=== PATIENT | female | born 1985 | race African-American/Black ===

== ENCOUNTER 2016-12-01 17:27 | Emergency (ER) | payer BC ==
[2016-12-01 20:04] VITALS: BP 134/89
[2016-12-01] MEDS ORDERED: HYDROcodone/ACETAMIN 5-325 MG* 1 TAB PO ONE (20:21)
[2016-12-01] MEDS ORDERED: Cyclobenzaprine TAB* 10 MG PO ONE (20:21)
--- NOTE | 2016-12-01 20:21 | UC ---
Truncal Trauma HPI - HPI Summary HPI Summary: lifted a heavy laptop yesterday, felt a sudden "pop" and terrible pain in left lower ribcage. Had similar episode twice before, was told she "sprained or broke a rib". Worsening pain today. Hurts with any torso movement, hurts to cough or take a deep breath. No fever. NO recent illness. No bruising or visible swelling - History Of Current Complaint Chief Complaint: UCBackPain Stated Complaint: RIBS & BACK PAIN Time Seen by Provider: 12/01/16 20:16 Hx Obtained From: Patient Hx Last Menstrual Period: 11/06/16 Onset/Duration: Sudden Onset, Lasting Days - 2 Onset Of Pain: Immediate Severity Initially: Moderate Severity Currently: Moderate Mechanism Of Injury: Twisted - while lifting Aggravating Factor(s): Movement, Deep Breathing, Cough Alleviating factor(s): Nothing Associated Signs And Symptoms: Positive: Chest Pain - pleuritic Related History: Similar Episode That Was Diagnosed As: - rib fracture/chest wall strain - Allergies/Home Medications Allergies/Adverse Reactions: Allergies Allergy/AdvReac Type Severity Reaction Status Date / Time No Known Allergies Allergy Verified 12/01/16 19:54 Home Medications: Home Medications Clindamycin CAP* [Cleocin 150 MG CAP*] 300 mg PO BID 12/01/16 [History Confirmed 12/01/16] PMH/Surg Hx/FS Hx/Imm Hx Previously Healthy: Yes - Surgical History Surgical History: Yes Surgery Procedure, Year, and Place: TORN ACL, BILATEREAL REPAIR. 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 Lives: With Family Alcohol Use: Occasionally Substance Use Type: None Smoking Status (MU): Light Every Day Tobacco Smoker Type: Cigarettes Amount Used/How Often: 7 cigarettes daily Have You Smoked in the Last Year: Yes When Did the Patient Quit Smoking/Using Tobacco: 07/02/14 Household Exposure Type: Cigarettes Review of Systems Constitutional: Negative Skin: Negative Eyes: Negative ENT: Negative Respiratory: Other - pleuritic pain Cardiovascular: Chest Pain - chest wall Gastrointestinal: Negative Genitourinary: Negative Motor: Negative Neurovascular: Negative Musculoskeletal: Negative Neurological: Negative Psychological: Negative All Other Systems Reviewed And Are Negative: Yes Physical Exam Triage Information Reviewed: Yes Appearance: Well-Appearing, Well-Nourished, Pain Distress - looks uncomfortable , clutching left ribcage Vital Signs: Initial Vital Signs Temp 98.4 F 12/01/16 19:57 Pulse 81 12/01/16 19:57 Resp 16 12/01/16 19:57 BP 134/89 12/01/16 19:57 Pulse Ox 100 12/01/16 19:57 Vital Signs Reviewed: Yes Eye Exam: Normal Respiratory: Positive: Lungs clear, Normal breath sounds, No respiratory distress, No accessory muscle use, Other: - marked tenderness left lateral lower ribcage. No bruising or swelling. No crepitus Cardiovascular Exam: Normal Musculoskeletal Exam: Normal Neurological Exam: Normal Psychological Exam: Normal Skin Exam: Normal Diagnostics - Laboratory Diagnostic Studies Completed/Ordered: rib series neg Truncal Trauma Course/Dx - Differential Dx/Diagnosis Differential Diagnosis/HQI/PQRI: Chest Wall Contusion, Pneumothorax, Rib Fracture Provider Diagnoses: chest wall injury Discharge - Discharge Plan Condition: Stable Disposition: HOME Prescriptions: Cyclobenzaprine TAB* [Flexeril TAB*] 10 mg PO TID PRN #30 tab PRN Reason: Pain Hydrocodone-Acetaminophen [Hydrocodone/Acetaminophen 5-325 mg] 1 - 2 tab PO Q6HR PRN #30 tab MDD 6 tab PRN Reason: Pain Patient Education Materials: Chest Wall Pain (ED) Forms: *Work Release Referrals: Anival Urena MD [Primary Care Provider] -
--- NOTE | 2016-12-01 21:40 | RAD ---
HISTORY: Left rib pain, injury COMPARISONS: September 19, 2015 VIEWS: 4, Frontal view of the chest with frontal and oblique views of the left hemithorax FINDINGS: There is no displaced rib fracture or pneumothorax. The visualized lungs are clear. IMPRESSION: NO DISPLACED RIB FRACTURE OR PNEUMOTHORAX
== END 2016-12-01 22:04 | disposition home or self-care (01) ==
LOC: UCCORT 17:27
DX: R07.89 Other chest pain (principal); F17.210 Nicotine dependence, cigarettes, uncomplicated
CPT/HCPCS: 99212; A9270-GY; G0463

== ENCOUNTER 2018-04-10 13:54 | Emergency (ER) | payer BC ==
[2018-04-10 14:44] VITALS: BP 123/71
--- NOTE | 2018-04-10 14:49 | UC ---
Back Pain HPI - HPI Summary HPI Summary: 32 yo female had been lifting wts at gym yesterday Today on awakening she stretched and had the sudden onset of upper back pain/ tightness - History of Current Complaint Chief Complaint: UCBackPain Stated Complaint: UPPER BACK PAIN Time Seen by Provider: 04/10/18 14:47 Hx Obtained From: Patient Hx Last Menstrual Period: 03/25/18 Onset/Duration: Sudden Onset Timing: Constant Severity Initially: Severe Severity Currently: Severe Pain Intensity: 8 Pain Scale Used: 0-10 Numeric Back Pain: Is Discrete @ - rhomboids Character: Aching, Throbbing, Spasmodic, Stiffness Aggravating Factor(s): Movement, Lifting, Bending Alleviating Factor(s): Nothing Associated Signs And Symptoms: Positive: Negative Related History: Similar Episode Dx As - back strain - Allergies/Home Medications Allergies/Adverse Reactions: Allergies Allergy/AdvReac Type Severity Reaction Status Date / Time No Known Allergies Allergy Verified 04/10/18 14:29 Home Medications: Home Medications [place] Extract 1 gm MC 04/10/18 [History] Cholecalciferol (Vitamin D3) [Vitamin D3] 2,000 unit PO 04/10/18 [History] Garlic 04/10/18 [History] Naproxen Sodium [Aleve] 220 mg PO PRN 04/10/18 [History] [place] Extract [[place] Extract] 250 mg PO 04/10/18 [History] Turmeric Root Extract [Ra Turmeric] 500 mg PO 04/10/18 [History] PMH/Surg Hx/FS Hx/Imm Hx Previously Healthy: Yes - Surgical History Surgical History: Yes Surgery Procedure, Year, and Place: TORN ACL, BILATEREAL REPAIR. RIGHT HAND SURGERY - Family History Known Family History: Positive: Cardiac Disease, Hypertension, Diabetes Negative: Respiratory Disease - Social History Alcohol Use: Rare Substance Use Type: None Smoking Status (MU): Former Smoker Type: Cigarettes Amount Used/How Often: 7 cigarettes daily Have You Smoked in the Last Year: Yes When Did the Patient Quit Smoking/Using Tobacco: 11/05/17 Household Exposure Type: Cigarettes Review of Systems Constitutional: Negative Skin: Negative Eyes: Negative ENT: Negative Respiratory: Negative Cardiovascular: Negative Gastrointestinal: Negative Genitourinary: Negative Motor: Negative Neurovascular: Negative Musculoskeletal: Myalgia Neurological: Negative Psychological: Negative Is Patient Immunocompromised?: No All Other Systems Reviewed And Are Negative: Yes Physical Exam Triage Information Reviewed: Yes Appearance: Well-Appearing, No Pain Distress, Well-Nourished Vital Signs: Initial Vital Signs Temp 98.1 F 04/10/18 14:34 Pulse 58 04/10/18 14:34 Resp 16 04/10/18 14:34 BP 123/71 04/10/18 14:34 Pulse Ox 100 04/10/18 14:34 Vital Signs Reviewed: Yes Eyes: Positive: Conjunctiva Clear ENT: Positive: Hearing grossly normal. Negative: Nasal congestion, Nasal drainage, Trismus, Muffled voice, Hoarse voice, Sinus tenderness Neck: Positive: Supple, Nontender, No Lymphadenopathy Respiratory: Positive: Lungs clear, Normal breath sounds, No respiratory distress Cardiovascular: Positive: RRR, No Murmur Musculoskeletal: Positive: ROM Limited @ - both shoulders- hurts to lift arms Neurological: Positive: Alert, Muscle Tone Normal Psychological Exam: Normal Skin Exam: Normal Back Pain Course/Dx - Differential Dx/Diagnosis Provider Diagnoses: upper back strain Discharge - Sign-Out/Discharge Documenting (check all that apply): Discharge/Admit/Transfer - Discharge Plan Condition: Stable Disposition: HOME Prescriptions: Cyclobenzaprine TAB* [Flexeril TAB*] 10 mg PO TID PRN #21 tab PRN Reason: Spasms Patient Education Materials: Thoracic Pain (ED) Forms: *Work Release Referrals: Magalie Lacey MD [Primary Care Provider] - 1 Week Additional Instructions: PT consult you may take aleve 2 twice daily with food food pain next dose around 9PM muscle relaxant may cause drowsiness don't take and drive - Billing Disposition and Condition Condition: STABLE Disposition: Home Images Front/Back of Body, Lg ([place]): 1 - bilat thomboid mus tenderness
[2018-04-10] MEDS ORDERED: Ketorolac INJ* 30 MG/ML 1 ML VIAL IM ONE (14:58)
== END 2018-04-10 15:23 | disposition home or self-care (01) ==
LOC: UCCORT 13:54
DX: S29.012A Strain of muscle and tendon of back wall of thorax, initial encounter (principal); X50.0XXA Overexertion from strenuous movement or load, initial encounter; Y93.89 Activity, other specified; Y92.003 Bedroom of unspecified non-institutional (private) residence as the place of occurrence of the external cause; Z87.891 Personal history of nicotine dependence
CPT/HCPCS: 96372; 99211; G0463; J1885

== ENCOUNTER 2019-03-09 17:26 | Emergency (ER) | payer BC ==
--- OUTSIDE RECORDS SUMMARY | 2019-03-09 17:34 | XMS REPORT | Continuity of Care Document ---
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 Independent with all ADL's Tobacco Use Start: Unknown End: Quit Unknown ETOH Use Currently consumes alcohol socially Tobacco Use Start: Unknown End: Patient is a former smoker Unknown Tobacco Use Start: Unknown End: Patient is a former smoker Patient quit Unknown Smoking Status Reviewed: 02/04/19 Patient is a former smoker Patient quit Allergies, Adverse Reactions, Alerts Description No Known Drug Allergies Medications Active Medications SIG Qnty Indications Ordering Date Provider Vitamin D3 Adult 2 tabs daily 60units Surinder Olivares MD 11/20/2018 Gummies 1000Unit Chewtabs Aspirin 81 Low Dose 1 tab by mouth 30units I21.4 Taz Franco MD 2017 every day as 81mg Chewtabs directed Ibuprofen 1 tab by mouth 60tabs M94.0 Magalie Lacey, 08/22/2017 600mg Tablets every 6 hours as M.D. needed Atorvastatin Calcium 1 by mouth every 90tabs Taz Franco MD day 40mg Tablets History Medications No Active Medications Unknown 08/22/2017 - 08/22/2017 Cyclobenzaprine HCL take 1 tablet 30tabs M94.0 Magalie Lacey, 08/22/2017 - 10mg by mouth 3 M.D. Unknown Tablets times a day as needed Clindamycin HCL 1 po q 8hr 28caps Nate Bautista, 12/31/2015 - 300mg M.D. 01/10/2016 Capsules Clindamycin HCL Unknown - 12/31/2015 Acidophilus Unknown - 08/22/2017 Pantoprazole Sodium 1 by mouth Unknown - 40mg every day Unknown Tablets DR Cyclobenzaprine HCL Take One Tablet Unknown - 10mg Three Times A 02/17/2019 Tablets Day as Needed For Spasms Immunizations CPT Code Status Date Vaccine Lot # [id number] Given 08/22/2017 Tdap injection [id number] Given 08/22/2017 Influenza Virus Vaccine Quadrivalent Iiv4 Split [id number] Preser Free Id Vital Signs Date Vital Result Comment 02/17/2019 1:41pm BP Systolic 122 mmHg BP Diastolic 72 mmHg Heart Rate 63 /min Respiratory Rate 18 /min Height 65 inches 5'5" Weight 189.00 lb BMI (Body Mass Index) 31.4 kg/m2 BSA (Body Surface Area) 1.93 m2 [place] body weight in kilograms 57 kg O2 % BldC Oximetry 98 % Ra 11/19/2018 1:39pm BP Systolic Sitting Left Arm 118 mmHg BP Diastolic Sitting Left Arm 52 mmHg Respiratory Rate 16 /min Height 65 inches 5'5" Weight 200.00 lb BMI (Body Mass Index) 33.3 kg/m2 BSA (Body Surface Area) 1.98 m2 [place] body weight in kilograms 57 kg O2 % BldC Oximetry 99 % 09/30/2018 2:38pm BP Systolic 122 mmHg BP Diastolic 80 mmHg Heart Rate 104 /min Respiratory Rate 20 /min Height 65 inches 5'5" Weight 210.00 lb BMI (Body Mass Index) 34.9 kg/m2 BSA (Body Surface Area) 2.02 m2 [place] body weight in kilograms 57 kg O2 % BldC Oximetry 98 % 09/11/2018 9:45am BP Systolic 122 mmHg BP Diastolic 72 mmHg Body Temperature 98.2 F Heart Rate 60 /min Respiratory Rate 20 /min Height 65 inches 5'5" Weight 208.00 lb BMI (Body Mass Index) 34.6 kg/m2 BSA (Body Surface Area) 2.01 m2 [place] body weight in kilograms 57 kg O2 % BldC Oximetry 98 % 11/20/2017 8:46am BP Systolic 116 mmHg BP Diastolic 78 mmHg Heart Rate 70 /min Height 65 inches 5'5" Weight 216.00 lb BMI (Body Mass Index) 35.9 kg/m2 BSA (Body Surface Area) 2.04 m2 [place] body weight in kilograms 57 kg O2 % BldC Oximetry 96 % 08/22/2017 1:52pm BP Systolic Sitting Left Arm 132 mmHg BP Diastolic Sitting Left Arm 86 mmHg Height 65 inches 5'5" Weight 208.12 lb BMI (Body Mass Index) 34.6 kg/m2 BSA (Body Surface Area) 2.01 m2 [place] body weight in kilograms 57 kg 01/10/2016 1:48pm BP Systolic Sitting Left Arm 128 mmHg BP Diastolic Sitting Left Arm 94 mmHg 12/31/2015 9:32am BP Systolic 125 mmHg BP Diastolic 79 mmHg Height 64 inches 5'4" Weight 209.00 lb BMI (Body Mass Index) 35.9 kg/m2 BSA (Body Surface Area) 1.99 m2 Results Test Date Facility Test Result H/L Range Note LDL Cholesterol 11/19/2018 [facility] Cholesterol 139 mg/dL <200 1, 2 Profile [address] [place] [address] [phone] Triglycerides 76 mg/dL <150 3 HDL Cholesterol 49 mg/dL >40 4 LDL-Cholesterol 75 mg/dL < 100 5 Liver Function Tests 11/19/2018 [facility] Total Protein 7.9 g/dL N 6.4-8.[address] [place] [address] [phone] Albumin 3.8 g/dL N 3.4-5.0 Globulin 4.1 g/dL N 1.9-4.3 Alb/Glob 0.9 ratio Bilirubin,Total 0.3 mg/dL N 0.2-1.0 Bilirubin,Direct 0.1 mg/dL N 0.0-0.2 Bilirubin,Indirect 0.2 mg/dL N 0.0-0.9 Sgot/Ast 22 U/L N 15-37 SGPT/Alt 31 U/L N 12-78 Alkaline Phosphatase 96 U/L N 45-117 Laboratory test 11/19/2018 [facility] Thyroid Stim 1.16 uIU/mL N 0.30-4.[address] [place] [address] [phone] Vitamin D,25-Hydroxy 20.1 ng/mL Low 30.0-100.0 6 CK-MB (Mass) < 1.0 ng/ml N 0.5-3.6 CBC W/Automated Diff 09/11/2018 [facility] [address] White Blood 6.3 K/uL N 3.1-10.[address] [place] [address] [phone] Red Blood Count 4.68 M/uL N 3.90-5.40 Hemoglobin 14.0 gm/dL N 11.6-15.8 Hematocrit 42.2 % N 36.0-46.1 Mean Cell Volume 90.2 fl N 80.9-99.0 Mean Corpuscular HGB 29.9 pg N 25.9-32.7 Mean Corpuscular HGB Conc 33.2 g/dL N 30.8-34.3 Platelet Count 268 K/uL N 155-360 Red Cell Distri Width SD 48.7 fl High 3-47 Red Cell Distri Width %CV 15.0 % High 11.7-14.4 Mean Platelet Volume 11.2 fL N 8.9-12.4 Neut% 48.5 % N 40.4-72.8 Lymph % 37.0 % N 20.0-42.0 [place] % 9.7 % N 4.3-13.2 Eo% 4.3 % N 0.0-6.6 Bas% 0.5 % N 0.0-1.1 Neut# 3.05 K/uL N 1.8-7.0 Lymph # 2.33 K/uL N 1.0-4.0 [place] # 0.61 K/uL N 0.3-0.9 Eos # 0.27 K/uL N 0.0-0.5 Baso # 0.03 K/uL N 0.0-0.1 Comprehensive Metabolic 09/11/[address] Glucose 123 mg/dL High 74-106 Panel [address] [place] [address] [phone] BUN 5 mg/dL Low 7-18 Creatinine 0.8 mg/dL N 0.6-1.3 Glom Filtration Rate, Estimate >60 mL/min >60 If >60 mL/min >60 8 BUN/Creat 6.2 ratio Sodium 136 mmol/L N 136-145 Potassium 4.1 mmol/L N 3.5-5.1 Chloride 106 mmol/L N 98-107 Carbon Dioxide 24 mmol/L N 21-32 Anion Gap 6 mEq/L Low 8-16 Calcium 8.4 mg/dL Low 8.5-10.1 Total Protein 7.7 g/dL N 6.4-8.2 Albumin 3.4 g/dL N 3.4-5.0 Globulin 4.3 g/dL N 1.9-4.3 Alb/Glob 0.8 ratio Bilirubin,Total 0.2 mg/dL N 0.2-1.0 Sgot/Ast 24 U/L N 15-37 SGPT/Alt 35 U/L N 12-78 Alkaline Phosphatase 78 U/L N 45-117 Reflex add FT3? Y Reflex add FT4? Y LDL Cholesterol Profile 09/11/2018 [facility] [address] Cholesterol 177 mg/dL <200 9 [address] [place] [address] [phone] Triglycerides 115 mg/dL <150 10 HDL Cholesterol 43 mg/dL >40 11 LDL-Cholesterol 111 mg/dL < 100 12 Reflex add FT3? Y Reflex add FT4? Y Glycohemoglobin A1c 09/11/2018 [facility] [address] Glycohemoglobin 6.1 % N 4.2-6.3 13 [address] [facility] (A1c) [place] [address] [phone] eAG 128 mg/dL TSH Reflex FT4 09/11/2018 [facility] [address] Thyroid Stim 1.90 uIU/mL N 0.30-4.20 And/Or FT3 [address] [facility] [place] [address] [phone] Reflex add FT3? Y Reflex add FT4? Y Laboratory test 12/22/2015 N2N/CCD Import Urine Bilirubin Negative Negative finding Urine Blood Negative Negative Urine Clarity Clear Clear Urine Color Straw Yellow Urine Glucose (Ua) Negative Negative Urine Ketones Negative Negative Urine Leukocyte Esterase Negative Negative Urine Nitrite Negative Negative Urine Protein Negative Negative Urine Urobilinogen 0.2 0.2-1.0 Urine pH 6.0 Low 6.5-7.5 Laboratory test 12/21/2015 N2N/CCD Import Erythrocyte 13 0-20 finding Sedimentation Rate Laboratory test 12/21/2015 [facility] C-Reactive 13.3 mg/L High <3.[address] Protein,[place] [address] [phone] Sedimentation Rate 13 mm/hr 0-20 Laboratory test finding 12/21/2015 N2N/CCD Import Aerobic Blood No Growth Culture Anaerobic Blood Culture No Growth Laboratory test finding 12/21/2015 N2N/CCD Import Aerobic Blood No Growth Culture Anaerobic Blood Culture No Growth Laboratory test 12/20/2015 N2N/CCD Import Alanine Aminotransferase 26 12 -78 finding (Alt/SGPT) Albumin 3.7 3.4-5.0 Albumin/Globulin Ratio 1.0 Alkaline Phosphatase 78 45-117 Anion Gap 6 Low 8-16 Aspartate Amino Transf (Ast/Sgot) 15 15-37 BUN/Creatinine Ratio 13.3 Basophils # (Auto) 0.03 0.0-0.1 Basophils (%) (Auto) 0.4 0.0-1.1 Blood Urea Nitrogen 12 7-18 Calcium Level 8.4 Low 8.5-10.1 Carbon Dioxide Level 28 21-32 Chloride Level 106 98-107 Creatinine 0.9 0.6-1.3 Eosinophils # (Auto) 0.36 0.0-0.5 Eosinophils (%) (Auto) 4.6 0.0-6.6 Globulin 3.7 1.9-4.3 Glucose Screen 152 High 74-106 Lymphocytes # (Auto) 3.79 1.8-7.0 Lymphocytes (%) (Auto) 48.8 High 17.0-46.1 Monocytes # (Auto) 0.64 0.3-0.9 Monocytes (%) (Auto) 8.2 4.3-13.2 Neutrophils # (Auto) 2.95 1.8-7.0 Neutrophils (%) (Auto) 38.0 Low 40.4-72.8 Potassium Level 4.0 3.5-5.1 Red Cell Distribution Width 45.6 3-47 Sodium Level 140 136-145 Total Bilirubin 0.3 0.2-1.0 Total Protein 7.4 6.4-8.2 Laboratory test 12/20/2015 [facility] C-Reactive 12.2 High <3.[address] Protein,Quant mg/[place] [address] [phone] Laboratory test 12/20/2015 N2N/CCD Import Hematocrit 39.8 36.0-46. finding 1 Hemoglobin 13.1 11.6-15.8 Mean Corpuscular Hemoglobin 30.2 25.9-32.7 Mean Corpuscular Hemoglobin Concent 32.9 30.8-34.3 Mean Corpuscular Volume 91.7 80.9-99.0 Mean Platelet Volume 11.1 8.9-12.4 Platelet Count 263 155-360 RDW Coefficient of Variation 14.3 11.7-14.4 Red Blood Count 4.34 3.90-5.40 White Blood Count 8.2 3.1-10.7 Laboratory test 12/20/2015 [facility] Sedimentation Rate See Note [address] [place] [address] [phone] Laboratory test 12/20/2015 N2N/CCD Import Urine Amphetamines Negative finding Screen Urine Barbiturates Screen Negative Urine Benzodiazepines Screen Negative Urine Cannabinoids Screen Positive High Urine Cocaine Screen Negative Urine Drug Screen Information * Urine HCG, Qualitative Negative Negative Urine Methadone Screen Negative Urine Opiates Screen Positive High Laboratory test 10/22/2015 N2N/CCD Import Alanine Aminotransferase 39 12 -78 finding (Alt/SGPT) Albumin 3.6 3.4-5.0 Albumin/Globulin Ratio 0.8 Alkaline Phosphatase 94 45-117 Anion Gap 11 8-16 Aspartate Amino Transf (Ast/Sgot) 32 15-37 BUN/Creatinine Ratio 6.6 Basophils # (Auto) 0.03 0.0-0.1 Basophils (%) (Auto) 0.3 0.0-1.1 Blood Urea Nitrogen 6 Low 7-18 Calcium Level 8.7 8.5-10.1 Carbon Dioxide Level 23 21-32 Chloride Level 109 High 98-107 Creatinine 0.9 0.6-1.3 Eosinophils # (Auto) 0.17 0.0-0.5 Eosinophils (%) (Auto) 2.0 0.0-6.6 Globulin 4.6 High 1.9-4.3 Glucose Screen 113 High 74-106 Hematocrit 43.3 36.0-46.1 Hemoglobin 14.9 11.6-15.8 Lipase 165 73-393 Lymphocytes # (Auto) 1.96 1.8-7.0 Lymphocytes (%) (Auto) 22.6 17.0-46.1 Mean Corpuscular Hemoglobin 31.4 25.9-32.7 Mean Corpuscular Hemoglobin Concent 34.4 High 30.8-34.3 Mean Corpuscular Volume 91.2 80.9-99.0 Mean Platelet Volume 10.4 8.9-12.4 Monocytes # (Auto) 1.09 High 0.3-0.9 Monocytes (%) (Auto) 12.6 4.3-13.2 Neutrophils # (Auto) 5.41 1.0-7.0 Neutrophils (%) (Auto) 62.5 40.4-72.8 Platelet Count 314 155-360 Potassium Level 3.6 3.5-5.1 RDW Coefficient of Variation 14.7 High 11.7-14.4 Red Blood Count 4.75 3.90-5.40 Red Cell Distribution Width 48.2 High 3-47 Sodium Level 143 136-145 Total Bilirubin 0.3 0.2-1.0 Total Protein 8.2 6.4-8.2 White Blood Count 8.7 3.1-10.7 Laboratory test finding 09/15/2015 N2N/CCD Import Urine Bacteria Few None Seen Urine Bilirubin Negative Negative Urine Blood Negative Negative Urine Clarity Clear Clear Urine Color Yellow Yellow Urine Epithelial Cells Moderate None Seen Urine Glucose (Ua) Negative Negative Urine HCG, Qualitative Negative Negative Urine Ketones Negative Negative Urine Leukocyte Esterase Small High Negative Urine Mucus Very Few None Seen Urine Nitrite Negative Negative Urine Protein Negative Negative Urine RBC None Seen 0-2 Urine Specific [place] 1.020 1.010-1.030 Urine Urobilinogen 0.2 0.2-1.0 Urine pH 6.0 Low 6.5-7.5 1 I25.10 2 Reference Guidelines*: Desirable: ........... < 200 mg/dL Borderline High: ..... 200-239 mg/dL High: ................ >=240 mg/dL * The National Cholesterol Education Program (NCEP) 3 Reference Guidelines*: Normal: ............. < 150 mg/dL Borderline High: .... 150-199 mg/dL High: ............... 200-499 mg/dL Very High: .......... > 500 mg/dL * Source: National Cholesterol Education Program (NCEP) 4 Reference Guidelines*: Low HDL: ..... < 40 mg/dL Normal: ..... 40-60 mg/dL Desirable: ... > 60 mg/dL *The National Cholesterol Education Program(NCEP) 5 Reference Guidelines*: Optimal:........... <100 mg/dL Near Optimal....... 100-129 mg/dL Borderline High.... 130-159 mg/dL High............... 160-189 mg/dL Very High.......... >=190 mg/dL * Source: National Cholesterol Education Program (NCEP) 6 Vitamin D deficiency has been defined by the [place] [employer] and an Endocrine Society practice guideline as a level of serum 25-OH vitamin D less than 20 ng/mL (1,2). The Endocrine Society went on to further define vitamin D insufficiency as a level between 21 and 29 ng/mL (2). 1. IOM ([place] [employer]). 2010. Dietary reference intakes for calcium and D. [place]: The National Academies Press. 2. Laura MF, Rodríguez [place], Viv ZHONG, et al. Evaluation, treatment, and prevention of vitamin D deficiency: an Endocrine Society clinical practice guideline. JCEM. 2010; 96(7):1911-30. Performed at: RN - [facility] [address] [id number] Analytics Manager: Izzy Resendez MD, Phone: [phone] [phone] Note: Persistent reduction for 3 months or more in an eGFR <60 mL/min/1.73 m2 defines CKD. Patients with eGFR values >/=60 mL/min/1.73 m2 may also have CKD if evidence of persistent proteinuria is present. The original MDRD equation for estimated GFR is not valid for patients less than 18 years of age. Additional information may be found at www.kdoqi.org. 9 Reference Guidelines*: Desirable: ........... < 200 mg/dL Borderline High: ..... 200-239 mg/dL High: ................ >=240 mg/dL * The National Cholesterol Education Program (NCEP) 10 Reference Guidelines*: Normal: ............. < 150 mg/dL Borderline High: .... 150-199 mg/dL High: ............... 200-499 mg/dL Very High: .......... > 500 mg/dL * Source: National Cholesterol Education Program (NCEP) 11 Reference Guidelines*: Low HDL: ..... < 40 mg/dL Normal: ..... 40-60 mg/dL Desirable: ... > 60 mg/dL *The National Cholesterol Education Program(NCEP) 12 Reference Guidelines*: Optimal:........... <100 mg/dL Near Optimal....... 100-129 mg/dL Borderline High.... 130-159 mg/dL High............... 160-189 mg/dL Very High.......... >=190 mg/dL * Source: National Cholesterol Education Program (NCEP) 13 Elevated levels of HbA1c suggest the need for more aggressive treatment of glycemia. The [place] Diabetes Association recommends that a primary goal of therapy should be a HbA1c of <7% and that physicians should re-evaluate the treatment regimen in patients with HbA1c values consistently >8%. 14 SEE H50 Procedures Date Code Description Status 12/11/2018 38878 Stress Test Interpre And Report Only Completed 12/11/2018 46108 Stress Test Physician Super Only Completed 11/19/2018 36145 EKG-Tracing And Report Completed 09/06/2018 57651 Echocardiogram Complete Completed Encounters Type Date Location Provider Dx Diagnosis Office Visit 02/17/2019 1:45p Family Medicine Taz Keller MD R73.[address] I25.10 Athscl heart disease of [place] coronary artery w/o ang pctrs E66.9 Obesity, unspecified K21.9 Gastro-esophageal reflux disease without esophagitis Office Visit 11/19/2018 1:30p Cardiology Office Surinder Olivares I25.10 Athscl heart MD disease of [place] coronary artery w/o ang pctrs R94.31 Abnormal electrocardiogram [ECG] [EKG] R07.2 Precordial pain R20.2 Paresthesia of skin R73.03 Prediabetes Office Visit 09/30/2018 2:45p Family Taz Gatica, I21.4 Non-St elevation Dustin SMITH MD ([place]) myocardial infarction R73.03 Prediabetes K21.9 Gastro-esophageal reflux disease without esophagitis Office Visit 09/11/2018 9:45a Family Taz Gatica I21.4 Non-St elevation Dustin SMITH MD ([place]) myocardial infarction E66.9 Obesity, unspecified Office Visit 11/20/2017 8:45a Family Medicine Magalie Lacey, M94.0 Chondrocostal Dustin SMITH M.D. junction syndrome [[place]] Office Visit 08/22/2017 1:45p Family Medicine Magalie Lacey M94.[address], M.D. junction syndrome [[place]ietze] Z23 Encounter for immunization Office Visit 01/10/2016 1:30p Orthopaedic Lily, L03.113 Cellulitis of Office Poly Sullivan right upper limb Office Visit 12/31/2015 9:15a Orthopaedic Bladimir L03.113 Cellulitis of Office BRETT Travis right upper limb Office Visit 12/23/2015 10:33a Orthopaedic Marco Tinajero L03.113 Cellulitis of Office Poly right upper limb Plan of Treatment Future Appointment(s):05/05/2019 2:15 pm - Surinder Olivares MD at Cardiology [id number]/31/2019 10:00 am - Taz Franco MD at [facility] [id number] - Taz Franco, MDR73.03 PrediabetesNew Labs:Glycohemoglobin A1c, Ordered: 02/17/19I25.10 Atherosclerotic heart disease of [place] coronary artery withE66.9 Obesity, igfujcpewvvE21.9 Gastro-esophageal reflux disease without esophagitis
--- NOTE | 2019-03-09 17:40 | UC ---
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 pt states it may have been there for about 20 minutes. it was not engorged. pt took a shower after and did not find any additional ticks. - History of Current Complaint Stated Complaint: SKIN CONCERN-TICK Time Seen by Provider: 03/09/19 17:33 Hx Obtained From: Patient Hx Last Menstrual Period: 03/25/18 Associated Signs & Symptoms: Negative: Fever - Allergy/Home Medications Allergies/Adverse Reactions: Allergies Allergy/AdvReac Type Severity Reaction Status Date / Time No Known Allergies Allergy Verified 03/09/19 17:45 Home Medications: Home Medications Aspirin [Aspir-Low] 81 mg PO DAILY 03/09/19 [History Confirmed 03/09/19] Atorvastatin* [Lipitor*] 20 mg PO 1700 03/09/19 [History Confirmed 03/09/19] PMH/Surg Hx/FS Hx/Imm Hx Previously Healthy: Yes - Surgical History Surgical History: Yes Surgery Procedure, Year, and Place: TORN ACL, BILATEREAL REPAIR. RIGHT HAND SURGERY - Family History Known Family History: Positive: Cardiac Disease, Hypertension, Diabetes Negative: Respiratory Disease - Social History Alcohol Use: Rare Substance Use Type: None Smoking Status (MU): Former Smoker Type: Cigarettes Amount Used/How Often: 7 cigarettes daily Have You Smoked in the Last Year: Yes When Did the Patient Quit Smoking/Using Tobacco: 11/05/17 Household Exposure Type: Cigarettes Review of Systems All Other Systems Reviewed And Are Negative: No Constitutional: Negative: Fever Skin: Negative: Rash Musculoskeletal: Negative: Arthralgia Physical Exam Triage Information Reviewed: Yes Appearance: Well-Appearing Vital Signs Reviewed: Yes Eyes: Positive: Conjunctiva Clear Neck: Positive: Supple Respiratory: Positive: Lungs clear Cardiovascular: Positive: RRR Abdomen Description: Positive: Nontender Musculoskeletal: Positive: ROM Intact Neurological: Positive: Alert Psychological: Positive: Age Appropriate Behavior Skin Exam: Normal, Other - Tiny raise pink spot on R Dorsal wrist area where the tick was removed. No rash. Course/Dx - Differential Dx - Multi-Symptom Differential Diagnoses: Other - tick not engorged and bite is of short duration thus antibiotic not indicated. - Diagnoses Provider Diagnosis: Tick bite Discharge - Sign-Out/Discharge Documenting (check all that apply): Patient Departure All imaging exams completed and their final reports reviewed: No Studies - Discharge Plan Condition: Stable Disposition: HOME Patient Education Materials: Tick Bite (ED) Referrals: Taz Franco MD [Primary Care Provider] - If Needed - Billing Disposition and Condition Condition: STABLE Disposition: Home
[2019-03-09 17:44] VITALS: BP 127/72
== END 2019-03-09 17:55 | disposition home or self-care (01) ==
LOC: UCCORT 17:26
DX: S60.861A Insect bite (nonvenomous) of right wrist, initial encounter (principal); Z87.891 Personal history of nicotine dependence; Z79.82 Long term (current) use of aspirin; W57.XXXA Bitten or stung by nonvenomous insect and other nonvenomous arthropods, initial encounter; Y92.9 Unspecified place or not applicable
CPT/HCPCS: 99211; G0463

== ENCOUNTER 2019-03-14 13:35 | Emergency (ER) | payer BC ==
[2019-03-14 14:11] VITALS: BP 121/71
--- NOTE | 2019-03-14 14:50 | UC ---
Back Pain HPI - HPI Summary HPI Summary: pt stepped going up her stairs while carrying her puppy and twisted her back plus heard a "crack" yesterday. she comes in today for ongoing pain along the L side of her back with some spasms. she never fell. she took some IB yesterday but none today. - History of Current Complaint Chief Complaint: UCUpperExtremity Stated Complaint: BACK INJURY Time Seen by Provider: 03/14/19 14:43 Hx Obtained From: Patient Hx Last Menstrual Period: 03/25/18 Onset/Duration: Sudden Onset Timing: Constant Pain Intensity: 8 Aggravating Factor(s): Movement Alleviating Factor(s): Rest Associated Signs And Symptoms: Negative: Fever, Weakness, Numbness, Tingling, Abdominal Pain, Flank Pain, Bladder Incontinence, Bowel Incontinence - Risk Factors Cauda Equina Risk Factors: Negative Epidural Abscess Risk Factors: Negative - Allergies/Home Medications Allergies/Adverse Reactions: Allergies Allergy/AdvReac Type Severity Reaction Status Date / Time No Known Allergies Allergy Verified 03/09/19 17:45 Home Medications: Home Medications Ibuprofen TAB* [Advil TAB*] 400 mg PO Q6H PRN 03/14/19 [History Confirmed ] PMH/Surg Hx/FS Hx/Imm Hx Endocrine History: Dyslipidemia - Surgical History Surgical History: Yes Surgery Procedure, Year, and Place: TORN ACL, BILATEREAL REPAIR. RIGHT HAND SURGERY - Family History Known Family History: Positive: Cardiac Disease, Hypertension, Diabetes Negative: Respiratory Disease - Social History Occupation: Employed Full-time Alcohol Use: Rare Substance Use Type: None Smoking Status (MU): Former Smoker Type: Cigarettes Amount Used/How Often: 7 cigarettes daily Have You Smoked in the Last Year: Yes When Did the Patient Quit Smoking/Using Tobacco: 11/05/17 Household Exposure Type: Cigarettes Review of Systems All Other Systems Reviewed And Are Negative: Yes Constitutional: Negative: Fever Gastrointestinal: Negative: Abdominal Pain Musculoskeletal: Positive: Decreased ROM - back Neurological: Negative: Weakness, Paresthesia, Numbness Physical Exam Triage Information Reviewed: Yes Appearance: No Pain Distress Vital Signs: Initial Vital Signs Temp 98.5 F 03/14/19 14:04 Pulse 66 03/14/19 14:04 Resp 18 03/14/19 14:04 BP 121/71 03/14/19 14:04 Pulse Ox 100 03/14/19 14:04 Vital Signs Reviewed: Yes Eyes: Positive: Conjunctiva Clear ENT: Positive: Normal ENT inspection Respiratory: Positive: Lungs clear Cardiovascular: Positive: RRR Abdomen Description: Positive: Nontender, No Organomegaly, Soft. Negative: Pulsatile Mass Bowel Sounds: Positive: Present Musculoskeletal: Positive: Other: - Back: no gross deformity. spine is non tender. tender over L paraspinal mm with spasm on movement. ROM limited by spasm. No saddle anesthesia. 5/5 strength, 2+ reflex and sensation intact x4. steady gait. Neurological: Positive: Alert Psychological: Positive: Age Appropriate Behavior Skin Exam: Normal Skin: Negative: Rashes Back Pain Course/Dx - Differential Dx/Diagnosis Provider Diagnosis: Back pain Discharge - Sign-Out/Discharge Documenting (check all that apply): Patient Departure All imaging exams completed and their final reports reviewed: No Studies - Discharge Plan Condition: Stable Disposition: HOME Prescriptions: Cyclobenzaprine TAB* [Flexeril 10 MG TAB*] 10 mg PO TID PRN #10 tab PRN Reason: Pain - Back Naproxen [Naprosyn 500 mg tab] 500 mg PO BID 5 Days #10 tablet Patient Education Materials: Back Pain (ED) Referrals: Taz Franco MD [Primary Care Provider] - 5 Days - Billing Disposition and Condition Condition: STABLE Disposition: Home - Attestation Statements Provider Attestation: Per institutional requirements, I have reviewed the chart, however, I was not consulted specifically or made aware of this patient by the midlevel provider. I did not personally evaluate, interact with , or disposition this patient.
[2019-03-14] MEDS ORDERED: Ketorolac INJ* 60 MG/2 ML VIAL IM ONE (14:54)
== END 2019-03-14 15:17 | disposition home or self-care (01) ==
LOC: UCCORT 13:35
DX: M54.9 Dorsalgia, unspecified (principal); M62.830 Muscle spasm of back; Z87.891 Personal history of nicotine dependence
CPT/HCPCS: 96372; 99212; G0463; J1885

== ENCOUNTER 2019-11-09 14:01 | Emergency (ER) | payer BC ==
[2019-11-09 15:17] VITALS: BP 139/85
--- NOTE | 2019-11-09 15:30 | UC ---
Back Pain HPI - HPI Summary HPI Summary: Fell on back in her driveway yesterday. Today C/O numbness and tingling. Still has sensation everywhere. No weakness. Tingling, pain, stiffness radiating up the back. - History of Current Complaint Chief Complaint: UCBackPain Stated Complaint: BACK PAIN Time Seen by Provider: 11/09/19 15:21 Hx Obtained From: Patient Hx Last Menstrual Period: 11/02/19 ?: No Onset/Duration: Sudden Onset, Lasting Days - 2, Still Present Timing: Constant Severity Initially: Severe Severity Currently: Severe Pain Intensity: 8 Back Pain: Is Discrete @ - Low back, Radiates To - into upper back Character: Dull, Aching, Spasmodic, Stiffness Aggravating Factor(s): Lifting, Bending, Walking Alleviating Factor(s): Rest Associated Signs And Symptoms: Negative: Swelling, Redness, Bruising, Fever, Weakness, Numbness, Tingling, Bladder Incontinence, Bowel Incontinence, Pain with Weight Bearing - Allergies/Home Medications Allergies/Adverse Reactions: Allergies Allergy/AdvReac Type Severity Reaction Status Date / Time No Known Allergies Allergy Verified 11/09/19 15:17 PMH/Surg Hx/FS Hx/Imm Hx Previously Healthy: Yes Endocrine History: Dyslipidemia - Surgical History Surgical History: Yes Surgery Procedure, Year, and Place: TORN ACL, BILATEREAL REPAIR. RIGHT HAND SURGERY - Family History Known Family History: Positive: Cardiac Disease, Hypertension, Diabetes Negative: Respiratory Disease - Social History Occupation: Employed Full-time Lives: With Family Alcohol Use: Rare Substance Use Type: None Smoking Status (MU): Former Smoker Type: Cigarettes Amount Used/How Often: 7 cigarettes daily Have You Smoked in the Last Year: Yes When Did the Patient Quit Smoking/Using Tobacco: 11/05/17 Household Exposure Type: Cigarettes Review of Systems All Other Systems Reviewed And Are Negative: Yes Musculoskeletal: Positive: Arthralgia - low back Is Patient Immunocompromised?: No Physical Exam Triage Information Reviewed: Yes Appearance: Well-Appearing, Well-Nourished, Pain Distress Vital Signs: Initial Vital Signs Temp 98.5 F 11/09/19 15:11 Pulse 59 11/09/19 15:11 Resp 16 11/09/19 15:11 BP 139/85 11/09/19 15:11 Pulse Ox 100 11/09/19 15:11 Vital Signs Reviewed: Yes Eyes: Positive: Conjunctiva Clear Neck exam: Normal Respiratory Exam: Normal Cardiovascular Exam: Normal Musculoskeletal: Positive: ROM Limited @ - Lumbar spine and thoracic spine., Edema @ - 1+ pretibial edema, Other: - Tenderness over the spinous process L4/L5 Neurological Exam: Normal - pinprick testing over the whole back. DTR trace symmetrical patella and achilles. Psychological Exam: Normal Skin Exam: Normal Diagnostics - Radiology No standard instances Radiology Interpretation Completed By: ED Physician Summary of Radiographic Findings: Normal xray Back Pain Course/Dx - Differential Dx/Diagnosis Differential Diagnosis/HQI/PQRI: Cauda Equina Syndrome, Herniated Disc, Strain, Sprain Provider Diagnosis: Contusion of lower back Discharge ED - Sign-Out/Discharge Documenting (check all that apply): Patient Departure All imaging exams completed and their final reports reviewed: No - Discharge Plan Condition: Stable Disposition: HOME Prescriptions: Cyclobenzaprine TAB* [Flexeril 10 MG TAB*] 10 mg PO TID PRN #30 tab PRN Reason: Spasms - Back Ibuprofen TAB* [Motrin TAB* 600 MG] 600 mg PO Q6H PRN #100 tab PRN Reason: Pain - Moderate Patient Education Materials: Contusion in Adults (ED) Referrals: Taz Franco MD [Primary Care Provider] - Additional Instructions: Ice to the low back for another 24 hours and heat to the upper back. Start to get moving tomorrow. See the chiropractor if pain is persisting. - Billing Disposition and Condition Condition: STABLE Disposition: Home
--- NOTE | 2019-11-10 08:56 | UC ---
- Progress Note Progress Note: Final radiologist reading of lumbosacral spine x-rays from November 09, 2019 comes back as no displaced fractures. Provider interpretation the same date is no fracture therefore there is no discrepancy. Course/Dx - Diagnoses Provider Diagnoses: Contusion of lower back Discharge ED - Sign-Out/Discharge Documenting (check all that apply): Patient Departure All imaging exams completed and their final reports reviewed: Yes - Discharge Plan Condition: Stable Disposition: HOME Prescriptions: Cyclobenzaprine TAB* [Flexeril 10 MG TAB*] 10 mg PO TID PRN #30 tab PRN Reason: Spasms - Back Ibuprofen TAB* [Motrin TAB* 600 MG] 600 mg PO Q6H PRN #100 tab PRN Reason: Pain - Moderate Patient Education Materials: Contusion in Adults (ED) Referrals: Taz Franco MD [Primary Care Provider] - Additional Instructions: Ice to the low back for another 24 hours and heat to the upper back. Start to get moving tomorrow. See the chiropractor if pain is persisting. - Billing Disposition and Condition Condition: STABLE Disposition: Home
== END 2019-11-09 16:11 | disposition home or self-care (01) ==
LOC: UCCORT 14:01
DX: S30.0XXA Contusion of lower back and pelvis, initial encounter (principal); W18.30XA Fall on same level, unspecified, initial encounter; Y92.414 Local residential or business street as the place of occurrence of the external cause; Z87.891 Personal history of nicotine dependence
CPT/HCPCS: 72110; 99212; G0463